=== PATIENT | female | born 2000 | race Hispanic/Latino ===

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

== ENCOUNTER 2022-11-11 20:31 | Emergency (ER) | payer MEDICAID | END 2022-11-11 22:17 | disposition left against medical advice (07) | LOC: EDH 20:31 | DX: R10.9 Unspecified abdominal pain (principal); Z53.21 Procedure and treatment not carried out due to patient leaving prior to being seen by health care provider ==